=== PATIENT | female | born 1940 | race Caucasian/White ===

== ENCOUNTER → 2017-10-11 | Outpatient (CLI) | payer BC, OTHER ==
[~2017-10-11] MED LIST: CARBIDOPA-LEVO1 EAC5; CIPRO500 M1 PO; COLACE100 MG PO; DIPHENHYDRAMINE25 M3 PO; ELIQUIS5 MG PO; ENABLEX15 MG PO; HYDROCHLOROTH12.5 M1 PO; MACRODANTIN50 M1 PO; NORFLEX100 MG PO; OXYCODONE HCL 55 MG PO; PAXIL10 MG PO; PRINZIDE 20-121 EACH PO; Prinzide 20-12.5 Mg PO; ROPINIROLE HCL0.5 MG PO; SINEMET 25/1001 TA1 PO; TAMIFLU75 MG PO; TROSPIUM CHLORI60 MG PO; TYLENOL325 MG PO; VENLAFAXIN75 MG/1 T2 PO
== END ==
LOC: M.RAD 10:40
DX: Z12.31 Encounter for screening mammogram for malignant neoplasm of breast (principal); I10 Essential (primary) hypertension

== ENCOUNTER → 2017-10-15 | Outpatient (CLI) | payer BC | LOC: M.ULTRA 11:00 | DX: N63.20 Unspecified lump in the left breast, unspecified quadrant (principal); I10 Essential (primary) hypertension ==

== ENCOUNTER → 2018-01-31 | Outpatient (CLI) | payer BC ==
[2018-01-31 16:01] LABS: ABSOLUTE BASOPHILS 0.1 thou/uL (0.0-0.2); ABSOLUTE EOSINOPHILS 0.1 thou/uL (0.0-0.7); ABSOLUTE MONOCYTES 0.5 thou/uL (0.0-1.2); EOSINOPHILS 2.3 %; HEMATOCRIT 32.5 % (37.0-47.0); HEMOGLOBIN 10.6 gm/dL (12.0-15.0); LYMPHOCYTES 18.4 %; MCH 30.7 pg (26.0-34.0); MCHC 32.8 g/dL (28.0-37.0); MCV 93.7 fL (80.0-100.0); MONOCYTES 8.2 %; MPV 10.1 fl. (7.2-11.1); NUCLEATED RBCS 0 /100WBC; PLATELET COUNT* 146 thou/uL (150-400); POLYS 70.1 %; RBC 3.47 mil/uL (4.20-5.00); RDW-CV 15.3 % (10.5-14.5); WBC 5.7 thou/uL (4.0-11.0)
[2018-01-31 16:13] LABS: ALBUMIN 3.3 g/dL (3.4-5.0); CALCIUM 8.8 mg/dL (8.5-10.1); CREATININE 1.2 mg/dL (0.6-1.3); TOTAL BILIRUBIN 0.6 mg/dL (<0.1-1.0); TOTAL PROTEIN 7.1 g/dL (6.4-8.2)
== END ==
LOC: M.LAB 15:18
PROVIDERS: Nurse Practitioner Family
DX: I10 Essential (primary) hypertension (principal); R06.09 Other forms of dyspnea; Z79.01 Long term (current) use of anticoagulants

== ENCOUNTER → 2018-02-22 | Outpatient (CLI) | payer BC ==
--- NOTE | 2018-02-28 08:06 | PF ---
[address] [address] PULMONARY FUNCTION REPORT Name: ARMAND GUTIERREZ [id number] Admission: 02/22/18 Attend Phys: HARISH Ceja Discharge: Date of : 40 Report #: [id number] THIS REPORT FOR: //name// CC: Raissa Olivo DATE OF SERVICE: 02/22/2018 Kandice Olivo, nurse practitioner at Cardiology office. Dr. 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 Spirometry demonstrates very mild obstructive defect. Only slight improvement after single dose of inhaled bronchodilator is noted with 5% increase in FEV1. Some small airways disease was noted with some reversibility after bronchodilator. Post-bronchodilator studies show an FEV1 at 2.05 with an FVC of 2.5 liters. FEV1 is 84% of predicted. FVC is 78% of predicted, also showing some mild restrictive defect probably related to the patient's body habitus. Lung volumes performed via plethysmography show mild restrictive defect with total lung capacity 79% of predicted and slight decrease of diffusion of 57%, but when corrected for alveolar volume, it normalized out at 93%. Residual volume was slightly low at 72%. IMPRESSION: In this patient with dyspnea on exertion, abnormalities suggest mild obstructive and very mild restrictive defect, some small airways disease, some restrictive defect may be related to her body habitus. No significant improvement after single dose of inhaled bronchodilators was noted. <ELECTRONICALLY SIGNED> By: Jerzy Frankel MD 02/28/18 [id number] 2023Anthoemmy Frankel MD /nt
== END ==
LOC: M.PUL 02-15 10:00
DX: R06.09 Other forms of dyspnea (principal)

== ENCOUNTER → 2018-04-08 | Outpatient (CLI) | payer BC | LOC: M.ULTRA 09:00 | DX: R92.8 Other abnormal and inconclusive findings on diagnostic imaging of breast (principal) ==

== ENCOUNTER → 2018-07-11 | Outpatient (CLI) | payer BC ==
[2018-07-11 11:57] LABS: CALCIUM 9.5 mg/dL (8.5-10.1); CREATININE 1.6 mg/dL (0.6-1.3); POTASSIUM 4.3 mmol/L (3.5-5.1)
== END ==
LOC: M.LAB 11:31
PROVIDERS: Nurse Practitioner
DX: I10 Essential (primary) hypertension (principal)

== ENCOUNTER → 2018-08-01 | Outpatient (CLI) | payer BC ==
[2018-08-01 15:04] LABS: URINE BILIRUBIN NEGATIVE (Negative); URINE BLOOD NEGATIVE (Negative); URINE CLARITY CLEAR; URINE COLOR YELLOW; URINE GLUCOSE-RANDOM NEGATIVE (Negative); URINE KETONES NEGATIVE (Negative); URINE LEUKOCYTES-REFLEX NEGATIVE (Negative); URINE NITRITE-REFLEX NEGATIVE (Negative); URINE PROTEIN NEGATIVE (Negative); URINE UROBILINOGEN 0.2 E.U./dl (0.2-1.0)
[2018-08-01 15:22] LABS: ABSOLUTE BASOPHILS 0.1 thou/uL (0.0-0.2); ABSOLUTE EOSINOPHILS 0.1 thou/uL (0.0-0.7); ABSOLUTE LYMPHOCYTES 1.6 thou/uL (0.8-5.3); ABSOLUTE MONOCYTES 0.5 thou/uL (0.0-1.2); ABSOLUTE NEUTROPHILS 4.8 thou/uL (1.6-8.1); BASOPHILS 1.1 %; EOSINOPHILS 0.8 %; HEMATOCRIT 36.3 % (37.0-47.0); HEMOGLOBIN 12.3 gm/dL (12.0-15.0); LYMPHOCYTES 22.3 %; MCH 31.5 pg (26.0-34.0); MCHC 33.7 g/dL (28.0-37.0); MCV 93.3 fL (80.0-100.0); MONOCYTES 7.2 %; MPV 10.9 fl. (7.2-11.1); NUCLEATED RBCS 0 /100WBC; PLATELET COUNT* 178 thou/uL (150-400); POLYS 68.6 %; RDW-CV 13.2 % (10.5-14.5)
[2018-08-01 15:36] LABS: ALBUMIN 3.4 g/dL (3.4-5.0); CALCIUM 9.4 mg/dL (8.5-10.1); CREATININE 1.5 mg/dL (0.6-1.3); PHOSPHORUS* 3.3 mg/dL (2.5-4.9); POTASSIUM 4.8 mmol/L (3.5-5.1); URIC ACID* 10.7 mg/dL (2.6-7.2)
[2018-08-01 15:56] LABS: CALCIUM 9.2 mg/dL (8.5-10.1); CREATININE 1.5 mg/dL (0.6-1.3); PHOSPHORUS* 3.3 mg/dL (2.5-4.9)
[2018-08-02 10:06] LABS: COMPLEMENT-C4 28 mg/dL (14-44)
== END ==
LOC: M.LAB 14:40
PROVIDERS: Internal Medicine Nephrology
DX: I12.9 Hypertensive chronic kidney disease with stage 1 through stage 4 chronic kidney disease, or unspecified chronic kidney disease (principal); N18.3 Chronic kidney disease, stage 3 (moderate); Z79.01 Long term (current) use of anticoagulants

== ENCOUNTER → 2018-08-16 | Outpatient (CLI) | payer BC ==
[2018-08-16 12:52] LABS: ABSOLUTE EOSINOPHILS 0.1 thou/uL (0.0-0.7); ABSOLUTE LYMPHOCYTES 1.4 thou/uL (0.8-5.3); ABSOLUTE MONOCYTES 0.7 thou/uL (0.0-1.2); ABSOLUTE NEUTROPHILS 4.8 thou/uL (1.6-8.1); BASOPHILS 0.6 %; EOSINOPHILS 1.3 %; HEMATOCRIT 35.7 % (37.0-47.0); LYMPHOCYTES 20.1 %; MCH 31.3 pg (26.0-34.0); MCHC 33.6 g/dL (28.0-37.0); MCV 93.1 fL (80.0-100.0); MONOCYTES 9.6 %; MPV 9.8 fl. (7.2-11.1); NUCLEATED RBCS 0 /100WBC; PLATELET COUNT* 194 thou/uL (150-400); POLYS 68.4 %; RBC 3.83 mil/uL (4.20-5.00); RDW-CV 13.7 % (10.5-14.5)
[2018-08-16 13:04] LABS: ALBUMIN 3.3 g/dL (3.4-5.0); CALCIUM 9.6 mg/dL (8.5-10.1); POTASSIUM 4.3 mmol/L (3.5-5.1); TOTAL BILIRUBIN 0.4 mg/dL (<0.1-1.0); TOTAL PROTEIN 7.7 g/dL (6.4-8.2)
[2018-08-16 14:31] LABS: CREATININE 1.5 mg/dL (0.6-1.3)
[2018-08-16 23:09] LABS: GLYCOHEMOGLOBIN (HGB A1C) 6.5 % (4.8-5.6)
== END ==
LOC: M.LAB 12:21
PROVIDERS: Family Medicine
DX: E78.5 Hyperlipidemia, unspecified (principal); I12.9 Hypertensive chronic kidney disease with stage 1 through stage 4 chronic kidney disease, or unspecified chronic kidney disease; N18.3 Chronic kidney disease, stage 3 (moderate); G25.81 Restless legs syndrome; K21.9 Gastro-esophageal reflux disease without esophagitis; R73.9 Hyperglycemia, unspecified; R06.09 Other forms of dyspnea; R79.89 Other specified abnormal findings of blood chemistry

== ENCOUNTER → 2018-08-23 | Outpatient (CLI) | payer BC ==
[2018-08-23 13:39] LABS: CALCIUM 9.2 mg/dL (8.5-10.1); CREATININE 1.3 mg/dL (0.6-1.3); POTASSIUM 4.3 mmol/L (3.5-5.1)
== END ==
LOC: M.LAB 13:05
PROVIDERS: Nurse Practitioner
DX: I10 Essential (primary) hypertension (principal)

== ENCOUNTER → 2018-10-12 | Outpatient (CLI) | payer BC | LOC: M.RAD 10:21 | DX: Z12.31 Encounter for screening mammogram for malignant neoplasm of breast (principal) ==